=== PATIENT | female | born 1995 | race African-American/Black ===

== ENCOUNTER 2019-10-27 11:47 | Emergency (ER) | payer MEDICAID, OTHER ==
[~2019-10-27] VITALS: Ht 175.3 cm; Wt 78.5 kg
[2019-10-27 11:51] VITALS: BP 135/89
--- NOTE | 2019-10-27 11:58 | NUR ---
Pt ambulated to bed 12.
--- NOTE | 2019-10-27 12:00 | NUR ---
PT AWOKE YESTERDAY WITH SCLERA PINKISH, ITCHING, AND MILD WATERY DRAINAGE, AND YELLOWISH DISCHARGE. DENIES INJURY. SKIN IS PINK/WARM/DRY; AAOX4 WITH EVEN AND STEADY GAIT; LUNGS CLEAR BL; HR EVEN AND REGULAR; PT DENIES ANY FEVER, CP, SOB, OR COUGH, N/V/D AT THIS TIME; PATIENT STATES PAIN OF 4/10 AT THIS TIME; VSS; PATIENT POSITIONED FOR COMFORT; HOB ELEVATED; BEDRAILS UP X1; BED DOWN. ER MD MADE AWARE OF PT STATUS.
--- NOTE | 2019-10-27 12:15 | NUR ---
Dr. Hill is evaluating the patient at bedside.
[2019-10-27] MEDS ORDERED: TETRACAINE HCL/PF 0.5% OPTH 4 ML BTL ONE (12:21)
[2019-10-27] MEDS ORDERED: FLUORESCEIN OPTH STRIP 1 MG ONE (12:21)
[2019-10-27] MEDS ORDERED: FLUORESCEIN OPTH STRIP 1 MG OP ONE (12:25)
[2019-10-27] MEDS ORDERED: TETRACAINE HCL/PF 0.5% OPTH 4 ML BTL OP ONE (12:25)
[2019-10-27 13:59] VITALS: BP 135/89
--- NOTE | 2019-10-27 13:59 | NUR ---
Patient discharged with v/s stable. Written and verbal after care instructions given and explained. Patient alert, oriented and verbalized understanding of instructions. Ambulatory with steady gait. All questions addressed prior to discharge. ID band removed. Patient advised to follow up with PMD. Rx of POLYTRIM given. Patient educated on indication of medication including possible reaction and side effects. Opportunity to ask questions provided and answered.
== END 2019-10-27 13:59 | disposition home or self-care (01) ==
LOC: MED 11:47
DX: H57.11 Ocular pain, right eye (principal)
CPT/HCPCS: 99283

== ENCOUNTER 2021-04-10 03:56 | Emergency (ER) | payer OTHER ==
[~2021-04-10] VITALS: Ht 176.5 cm; Wt 78.2 kg
[2021-04-10 04:11] VITALS: BP 126/78
--- NOTE | 2021-04-10 04:21 | NUR ---
pt taken to bed 03.
[2021-04-10 05:06] LABS: APPEARANCE,URINE CLEAR (CLEAR); BILIRUBIN,URINE NEGATIVE (NEGATIVE); BLOOD, URINE NEGATIVE (NEGATIVE); COLOR,URINE RED (YELLOW); LEUKOCYTE ESTERASE ,URINE TRACE (NEGATIVE); NITRITE, URINE POSITIVE (NEGATIVE); UGLUCOSE 1+ (NEGATIVE)
--- NOTE | 2021-04-10 05:25 | NUR ---
Note scottyone in EDM - 04/10/21 at 0538 by CHIQUITA 26 Y/O F BIB SELF FOR CAGINAL DISHCHARGE FOR X4 DAYS. PT DENIES N/F/V/ PUT PT ADMITS FEELING DIZZY. PT FEELS BURNING SENSATION UPON URINATION. PT STATES BLOOD IN URINE. PT ADMITS TO SMOKING AND ALCOHOL.SKIN IS PINK/WARM/DRY; AAOX4 WITH EVEN AND STEADY GAIT; LUNGS CLEAR BL; HR EVEN AND REGULAR; NO PMH NKA
--- NOTE | 2021-04-10 05:38 | NUR ---
26 Y/O F BIB SELF FOR VAGINAL DISHCHARGE FOR X4 DAYS. PT DENIES N/F/V/ PUT PT ADMITS FEELING DIZZY. PT FEELS BURNING SENSATION UPON URINATION. PT STATES BLOOD IN URINE. PT ADMITS TO SMOKING AND ALCOHOL.SKIN IS PINK/WARM/DRY; AAOX4 WITH EVEN AND STEADY GAIT; LUNGS CLEAR BL; HR EVEN AND REGULAR; NO PMH NKA
[2021-04-10] MEDS ORDERED: DOXY-487 PO (05:56)
[2021-04-10] MEDS ORDERED: cefTRIAXone 500 MG in LIDOCAINE MPF 1% 1 ML IM ONE (06:15)
[2021-04-10] MEDS ORDERED: AZITHROMYCIN 250 MG TAB PO ONE (06:15)
[2021-04-10] MEDS ORDERED: cefTRIAXone 500 MG VIAL ONE (06:27)
[2021-04-10] MEDS ORDERED: LIDOCAINE MPF 1% 5 ML ONE (06:28)
[2021-04-10 06:50] VITALS: BP 130/80
== END 2021-04-10 06:50 | disposition home or self-care (01) ==
LOC: MED 03:56
DX: N72 Inflammatory disease of cervix uteri (principal); N39.0 Urinary tract infection, site not specified; Z79.899 Other long term (current) drug therapy; Z91.040 Latex allergy status
CPT/HCPCS: 81001; 81025; 96372; 99283; J0696; J2001

== ENCOUNTER 2021-08-14 22:48 | Emergency (ER) | payer OTHER ==
[~2021-08-14] VITALS: Ht 175.3 cm; Wt 80.7 kg
[~2021-08-14 22:48] MED LIST: DOXY-487 PO
[2021-08-14 22:59] VITALS: BP 136/77
[2021-08-15] MEDS ORDERED: DOXYCYCLINE 100 MG CAP PO STA (01:02)
--- NOTE | 2021-08-15 01:02 | NUR ---
PT TAKEN TO BED 12.
[2021-08-15] MEDS ORDERED: cefTRIAXone 500 MG in LIDOCAINE MPF 1% 1 ML IM ONE (01:05)
[2021-08-15] MEDS ORDERED: metroNIDAZOLE 250 MG TAB PO ONE (01:05)
[2021-08-15] MEDS ORDERED: DOXY-690 PO (01:07)
[2021-08-15] MEDS ORDERED: METR-435 PO (01:07)
--- NOTE | 2021-08-15 01:07 | NUR ---
26 YO F BIB SELF WITH C/C OF NEEDING TX FOR GONORRHEA. PT STATES HER PARTNER TESTED POSITIVE AND WAS INSTRUCTED TO SEEK TX. PT REPORTS VAGINAL DISCHARGE, ITCHING AND BURNING URINATION. DENIES HX ALLERGY:LATEX
[2021-08-15] MEDS ORDERED: cefTRIAXone 500 MG VIAL ONE (01:18)
[2021-08-15 01:58] VITALS: BP 136/77
--- NOTE | 2021-08-15 01:58 | NUR ---
Patient discharged with v/s stable. Written and verbal after care instructions given and explained. Patient alert, oriented and verbalized understanding of instructions. Ambulatory with steady gait. All questions addressed prior to discharge. ID band removed. Patient advised to follow up with PMD. Rx of VIBRAMYCIN AND METRONIDAZOLE given. Patient educated on indication of medication including possible reaction and side effects. Opportunity to ask questions provided and answered.
== END 2021-08-15 01:58 | disposition home or self-care (01) ==
LOC: MED 22:48
DX: A64 Unspecified sexually transmitted disease (principal); A59.01 Trichomonal vulvovaginitis; A74.9 Chlamydial infection, unspecified; A54.9 Gonococcal infection, unspecified; Z79.2 Long term (current) use of antibiotics; Z91.040 Latex allergy status
CPT/HCPCS: 81002; 81025; 87491; 96372; 99283; J0696

== ENCOUNTER 2021-08-23 14:21 | Emergency (ER) | payer OTHER ==
[~2021-08-23] VITALS: Ht 175.3 cm; Wt 80.7 kg
[~2021-08-23 14:21] MED LIST changes: +DOXY-690 PO; +METR-435 PO
[2021-08-23 14:50] VITALS: BP 118/80
[2021-08-23] MEDS ORDERED: cefTRIAXone 500 MG in LIDOCAINE MPF 1% 1 ML IM ONE (14:55)
[2021-08-23] MEDS ORDERED: LIDOCAINE MPF 1% 5 ML ONE (15:00)
[2021-08-23] MEDS ORDERED: cefTRIAXone 500 MG VIAL ONE (15:00)
[2021-08-23] MEDS ORDERED: DOXY-690 PO (15:01)
[2021-08-23 15:18] VITALS: BP 118/80
--- NOTE | 2021-08-23 15:20 | NUR ---
Patient discharged with v/s stable. Written and verbal after care instructions given and explained. Patient alert, oriented and verbalized understanding of instructions. Ambulatory with steady gait. All questions addressed prior to discharge. ID band removed. Patient advised to follow up with PMD. Rx of VIBRAMYCIN given. Patient educated on indication of medication including possible reaction and side effects. Opportunity to ask questions provided and answered.
== END 2021-08-23 15:20 | disposition home or self-care (01) ==
LOC: MED 14:21
DX: Z11.3 Encounter for screening for infections with a predominantly sexual mode of transmission (principal); R30.0 Dysuria; Z79.2 Long term (current) use of antibiotics; Z91.040 Latex allergy status
CPT/HCPCS: 81002; 81025; 87491; 96372; 99283; J0696; J2001

== ENCOUNTER 2021-09-30 08:19 | Emergency (ER) | payer OTHER ==
[~2021-09-30] VITALS: Ht 175.3 cm; Wt 79.9 kg
[2021-09-30 08:39] VITALS: BP 103/71
[2021-09-30] MEDS ORDERED: ACETAMINOPHEN EXTRA STRENGTH 500 MG TAB ONE (08:45)
[2021-09-30] MEDS ORDERED: ACETAMINOPHEN EXTRA STRENGTH 500 MG TAB PO ONE (08:45)
--- NOTE | 2021-09-30 08:47 | NUR ---
PT AMB TO BED 1. HANDED ON URINE CUP.
--- NOTE | 2021-09-30 09:11 | NUR ---
26 Y.O. F C/O FEVER, URINARY BURNING, TRAORE, COUGH , LOWR BACK, LOWER ABDOMINAL PAIN X 6 DAYS. 9/10 PAIN FOR THE LAST 6 DAYS. PT WAS TAKING MOTRIN AND TYLENOL AT HOME FOR PAIN AND FEVER. DENEIS N/V/D , CHEST PAIN AND SOB. A&OX4, SKIN INTACT, VITALS WNL, AND STEADY GAIT TO BEDSIDE. NKA PMH: DENIES
[2021-09-30] MEDS ORDERED: KETOROLAC 30 MG/ML VIAL IVP ONE (09:15)
[2021-09-30] MEDS ORDERED: NACL 0.9% 2,000 ML IV ONE (09:15)
[2021-09-30] MEDS ORDERED: cefTRIAXone 1,000 MG VIAL ONE (09:20)
[2021-09-30 09:39] LABS: HEMATOCRIT 40.7 % (36-48); HEMOGLOBIN 13.6 g/dL (12.0-16.0); MEAN CORPUSCULAR HEMOGLOBIN 30 pg (27-31); MEAN CORPUSCULAR HGB CONC 33 g/dL (33-37); MEAN CORPUSCULAR VOLUME 90.6 fL (80-94); PLATELET COUNT (AUTO) 170 K/uL (140-450); RED CELL DISTRIBUTION WIDTH 13.7 % (11.6-13.7); WHITE BLOOD COUNT (AUTO) 13.8 K/uL (4.8-10.8)
[2021-09-30 10:02] LABS: ANION GAP 13.4 (8-16); CARBON DIOXIDE 24.6 mmol/L (21-32); CREATININE 1.4 mg/dL (0.6-1.3); TOTAL BILIRUBIN 0.7 mg/dL (0.0-1.0)
[2021-09-30 10:14] LABS: APPEARANCE,URINE CLEAR (CLEAR); BILIRUBIN,URINE NEGATIVE (NEGATIVE); BLOOD, URINE 3+ (NEGATIVE); COLOR,URINE YELLOW (YELLOW); LEUKOCYTE ESTERASE ,URINE 2+ (NEGATIVE); NITRITE, URINE POSITIVE (NEGATIVE); PH,URINE 6.5 (5.0-9.0); UGLUCOSE NEGATIVE (NEGATIVE)
[2021-09-30 10:27] LABS: BARBITURATE, URINE NEGATIVE ng/ml (NEG <=200); BENZODIAZEPINE, URINE NEGATIVE ng/mL (NEG <=200); CANNABINOID, URINE POSITIVE ng/mL (NEG <=50); COCAINE, URINE NEGATIVE ng/mL (NEG <=300); OPIATE, URINE NEGATIVE ng/mL (NEG <=2000); PHENCYCLIDINE SCREEN,URINE NEGATIVE ng/mL (NEG <=25)
[2021-09-30 11:09] LABS: RBC,URINE 50-80 /HPF (0-5); WBC,URINE 16-25 (MOD) /HPF (0-5)
[2021-09-30 11:20] LABS: EOSINOPHILS % (MANUAL) 1 % (0-4); LYMPHOCYTES % (MANUAL) 5 % (20-46)
[2021-09-30 11:33] LABS: MONOCYTES % (MANUAL) 8 % (5-12)
[2021-09-30] MEDS ORDERED: ACET-10509 PO (11:55)
[2021-09-30] MEDS ORDERED: NAPR-54 PO (11:55)
[2021-09-30] MEDS ORDERED: CEPH-588 PO (11:55)
[2021-09-30 13:01] VITALS: BP 120/73
--- NOTE | 2021-09-30 13:02 | NUR ---
Patient discharged with v/s stable. Written and verbal after care instructions given and explained. Patient alert, oriented and verbalized understanding of instructions. Ambulatory with steady gait. All questions addressed prior to discharge. ID band removed. Patient advised to follow up with PMD. Rx of KEFLEX, NAPROXEN AND TYLENOL EXTRA STRENGTH given. Patient educated on indication of medication including possible reaction and side effects. Opportunity to ask questions provided and answered.
== END 2021-09-30 13:02 | disposition home or self-care (01) ==
LOC: MED 08:19
DX: N10 Acute pyelonephritis (principal); F19.10 Other psychoactive substance abuse, uncomplicated; Z91.040 Latex allergy status; Z79.899 Other long term (current) drug therapy
CPT/HCPCS: 36415; 71045; 80053; 80305; 81001; 81025; 83605; 83690; 85025; 87040; 87086; 96365; 96375; 99285; J0696; J1885; J7030; Q0092; 96361

== ENCOUNTER 2022-07-29 12:00 | Emergency (ER) | payer MEDICAID, OTHER ==
[~2022-07-29] VITALS: Ht 175.3 cm; Wt 88.5 kg
[~2022-07-29 12:00] MED LIST changes: +ACET-10509 PO; +CEPH-588 PO; +NAPR-54 PO
[2022-07-29 12:07] VITALS: BP 126/88
[2022-07-29 13:03] LABS: APPEARANCE,URINE SL CLOUDY (CLEAR); BILIRUBIN,URINE NEGATIVE (NEGATIVE); BLOOD, URINE 3+ (NEGATIVE); COLOR,URINE RED (YELLOW); LEUKOCYTE ESTERASE ,URINE 2+ (NEGATIVE); NITRITE, URINE POSITIVE (NEGATIVE); UGLUCOSE NEGATIVE (NEGATIVE)
[2022-07-29 13:45] LABS: RBC,URINE 11-20 (MOD) /HPF (0-5)
[2022-07-29] MEDS ORDERED: cefTRIAXone 500 MG in LIDOCAINE MPF 1% 1 ML IM ONE (13:50)
[2022-07-29] MEDS ORDERED: cefTRIAXone 500 MG VIAL ONE (13:57)
[2022-07-29] MEDS ORDERED: LIDOCAINE MPF 1% 5 ML ONE (13:57)
[2022-07-29] MEDS ORDERED: METR-435 PO (14:28)
[2022-07-29] MEDS ORDERED: DOXY-690 PO (14:28)
[2022-07-29 14:37] VITALS: BP 135/80
--- NOTE | 2022-07-29 14:37 | NUR ---
Patient discharged with v/s stable. Written and verbal after care instructions given. Patient alert, oriented and verbalized understanding of instructions. Ambulatory with steady gait. All questions addressed prior to discharge. ID band removed. Patient advised to follow up with PMD. Rx of Vibramycin and Metronidazole given. Opportunity to ask questions provided and answered.
--- NOTE | 2022-07-29 15:03 | NUR ---
The patient's care was reviewed and supervised by [facility], RN.
== END 2022-07-29 14:37 | disposition home or self-care (01) ==
LOC: MED 12:00
DX: N76.0 Acute vaginitis (principal); B96.89 Other specified bacterial agents as the cause of diseases classified elsewhere; Z20.2 Contact with and (suspected) exposure to infections with a predominantly sexual mode of transmission; Z79.899 Other long term (current) drug therapy; Z91.040 Latex allergy status
CPT/HCPCS: 81001; 81025; 87086; 87210; 87491; 96372; 99283; J0696; J2001

== ENCOUNTER 2022-09-22 12:38 | Emergency (ER) | payer MEDICAID ==
[~2022-09-22] VITALS: Ht 175.3 cm; Wt 58.5 kg
--- NOTE | 2022-09-22 12:58 | NUR ---
PT GIVEN URINE SPECIMEN CUP, RETURNED TO LOBBY AT THIS TIME
[2022-09-22 12:59] VITALS: BP 123/69; PULSE 106; RESP 20; TEMP 97.6; O2SAT 98
[2022-09-22] MEDS ORDERED: cefTRIAXone 1,000 MG in LIDOCAINE MPF 1% 2.1 ML IM ONE (13:35)
[2022-09-22] MEDS ORDERED: PHENAZOPYRIDINE 100 MG TAB PO ONE (13:35)
[2022-09-22] MEDS ORDERED: KETOROLAC 30 MG/ML VIAL IM ONE (13:35)
[2022-09-22 13:51] LABS: BILIRUBIN,URINE NEGATIVE (NEGATIVE); BLOOD, URINE 2+ (NEGATIVE); COLOR,URINE YELLOW (YELLOW); LEUKOCYTE ESTERASE ,URINE 3+ (NEGATIVE); NITRITE, URINE NEGATIVE (NEGATIVE); UGLUCOSE NEGATIVE (NEGATIVE)
[2022-09-22 13:52] LABS: APPEARANCE,URINE CLOUDY (CLEAR)
[2022-09-22] MEDS ORDERED: cefTRIAXone 1,000 MG VIAL ONE (13:57)
[2022-09-22] MEDS ORDERED: LIDOCAINE MPF 1% 5 ML ONE (13:57)
[2022-09-22 14:01] LABS: RBC,URINE 11-20 (MOD) /HPF (0-5)
[2022-09-22] MEDS ORDERED: CEPH-588 PO (14:56)
[2022-09-22 15:25] VITALS: BP 123/69; PULSE 106; RESP 20; TEMP 97.6; O2SAT 98
--- NOTE | 2022-09-22 15:25 | NUR ---
Patient discharged with v/s stable. Written and verbal after care instructions given and explained. Patient alert, oriented and verbalized understanding of instructions. Ambulatory with steady gait. All questions addressed prior to discharge. ID band removed. Patient advised to follow up with PMD. Rx of KEFLEX (SENT) given. Patient educated on indication of medication including possible reaction and side effects. Opportunity to ask questions provided and answered.
== END 2022-09-22 15:25 | disposition home or self-care (01) ==
LOC: MED 12:38
DX: N12 Tubulo-interstitial nephritis, not specified as acute or chronic (principal); Z79.899 Other long term (current) drug therapy; Z79.2 Long term (current) use of antibiotics; Z79.1 Long term (current) use of non-steroidal anti-inflammatories (NSAID); Z91.040 Latex allergy status
CPT/HCPCS: 81001; 81025; 87086; 87491; 96372; 99284; J0696; J1885; J2001

== ENCOUNTER 2023-01-30 20:54 | Emergency (ER) | payer BC, MEDICAID ==
[~2023-01-30] VITALS: Ht 175.3 cm; Wt 81.6 kg
[2023-01-30 21:27] VITALS: BP 129/80; PULSE 105; RESP 20; TEMP 98; O2SAT 98
[2023-01-30 22:31] LABS: APPEARANCE,URINE CLEAR (CLEAR); BILIRUBIN,URINE NEGATIVE (NEGATIVE); BLOOD, URINE NEGATIVE (NEGATIVE); COLOR,URINE YELLOW (YELLOW); LEUKOCYTE ESTERASE ,URINE TRACE (NEGATIVE); NITRITE, URINE NEGATIVE (NEGATIVE); PROTEIN,URINE NEGATIVE (NEGATIVE); UGLUCOSE NEGATIVE (NEGATIVE); UROBILINOGEN,URINE 0.2 EU/dL (0.2 - 1)
[2023-01-30 22:39] LABS: BACTERIA,URINE >30 (MANY) /HPF (None Seen); MUCUS,URINE 1+ /LPF (None Seen); RBC,URINE 0-5 /HPF (0-5); SQUAMOUS EPITHELIAL CELL,UR 4-10 (MOD) /LPF (0-3 (FEW))
[2023-01-30 22:48] VITALS: BP 129/80; PULSE 105; RESP 20; TEMP 98; O2SAT 98
[2023-01-30] MEDS ORDERED: cefTRIAXone 500 MG in LIDOCAINE MPF 1% 1 ML IM ONE (23:10)
[2023-01-30] MEDS ORDERED: cefTRIAXone 500 MG VIAL ONE (23:24)
[2023-01-30] MEDS ORDERED: LIDOCAINE MPF 1% 5 ML ONE (23:25)
[2023-01-31] MEDS ORDERED: DOXY-487 PO (00:01)
[2023-01-31] MEDS ORDERED: METR-435 PO (00:01)
== END 2023-01-31 00:21 | disposition home or self-care (01) ==
LOC: MED 20:54
DX: N76.0 Acute vaginitis (principal); B96.89 Other specified bacterial agents as the cause of diseases classified elsewhere; F17.200 Nicotine dependence, unspecified, uncomplicated; F12.90 Cannabis use, unspecified, uncomplicated; Z79.899 Other long term (current) drug therapy; Z79.2 Long term (current) use of antibiotics; Z79.1 Long term (current) use of non-steroidal anti-inflammatories (NSAID); Z91.040 Latex allergy status
CPT/HCPCS: 81001; 81025; 87086; 87210; 87491; 96372; 99283; J0696; J2001

== ENCOUNTER 2023-07-15 01:20 | Emergency (ER) | payer BC ==
[~2023-07-15] VITALS: Ht 177.8 cm; Wt 83.9 kg
[~2023-07-15 01:20] MED LIST changes: +NAPR-337 PO; -NAPR-54 PO
[2023-07-15 01:33] VITALS: BP 133/86; PULSE 102; RESP 16; TEMP 98.4; O2SAT 98
[2023-07-15 02:13] LABS: APPEARANCE,URINE CLEAR (CLEAR); BILIRUBIN,URINE NEGATIVE (NEGATIVE); BLOOD, URINE 1+ (NEGATIVE); COLOR,URINE YELLOW (YELLOW); LEUKOCYTE ESTERASE ,URINE NEGATIVE (NEGATIVE); NITRITE, URINE NEGATIVE (NEGATIVE); PH,URINE 6.5 (5.0-9.0); PROTEIN,URINE NEGATIVE (NEGATIVE); UGLUCOSE NEGATIVE (NEGATIVE); UROBILINOGEN,URINE 0.2 EU/dL (0.2 - 1)
[2023-07-15] MEDS ORDERED: cefTRIAXone 500 MG VIAL ONE (02:24)
[2023-07-15] MEDS ORDERED: LIDOCAINE MPF 1% 5 ML ONE (02:25)
[2023-07-15] MEDS ORDERED: DOXY-690 PO (02:26)
[2023-07-15] MEDS ORDERED: METR-435 PO (02:26)
[2023-07-15] MEDS: cefTRIAXone 500 MG in LIDOCAINE MPF 1% 1 ML IM ONE (02:32)
== END 2023-07-15 02:40 | disposition home or self-care (01) ==
LOC: MED 01:20
DX: N76.0 Acute vaginitis (principal); B96.89 Other specified bacterial agents as the cause of diseases classified elsewhere; Z79.899 Other long term (current) drug therapy
CPT/HCPCS: 81003; 81025; 87210; 87491; 96372; 99283; J0696; J2001

== ENCOUNTER 2023-08-20 21:57 | Emergency (ER) | payer BC ==
[~2023-08-20] VITALS: Ht 177.8 cm; Wt 83.9 kg
[2023-08-20 22:10] VITALS: BP 135/75; PULSE 86; RESP 18; TEMP 97.6; O2SAT 98
[2023-08-20] MEDS: ACETAMINOPHEN EXTRA STRENGTH 500 MG TAB PO ONE (22:38)
[2023-08-20] MEDS: KETOROLAC 30 MG/ML VIAL IM ONE (22:38)
[2023-08-20] MEDS: LIDOCAINE 5% 1 EA PATCH TP ONE (22:39)
[2023-08-20 22:40] VITALS: BP 135/75; PULSE 98; RESP 20; O2SAT 98
[2023-08-21] MEDS ORDERED: CYCL-711 PO (00:26)
[2023-08-21] MEDS ORDERED: IBUP-2218 PO (00:26)
[2023-08-21] MEDS ORDERED: ACET-10509 PO (00:26)
== END 2023-08-21 01:31 | disposition home or self-care (01) ==
LOC: MED 21:57
DX: S39.012A Strain of muscle, fascia and tendon of lower back, initial encounter (principal); I10 Essential (primary) hypertension; Z79.899 Other long term (current) drug therapy; Z91.040 Latex allergy status; X58.XXXA Exposure to other specified factors, initial encounter; Y92.89 Other specified places as the place of occurrence of the external cause; Y93.89 Activity, other specified; Y99.8 Other external cause status
CPT/HCPCS: 72100; 72220; 96372; 99284; J1885

== ENCOUNTER 2023-10-29 04:08 | Emergency (ER) | payer BC ==
[~2023-10-29] VITALS: Ht 175.3 cm; Wt 79.4 kg
[~2023-10-29 04:08] MED LIST changes: -ACET-10509 PO; +ACET500T99 PO; +CYCL-711 PO; +IBUP-2218 PO
[2023-10-29 04:12] VITALS: BP 127/87; PULSE 92; RESP 18; TEMP 98.5; O2SAT 100
[2023-10-29] MEDS ORDERED: IBUP-2213 PO (04:49)
[2023-10-29] MEDS ORDERED: AMOX1TAB8 PO (04:49)
[2023-10-29] MEDS: IBUPROFEN 600 MG TAB PO ONE (05:00)
--- NOTE | 2023-10-29 05:00 | NUR ---
28F BIB AMBULATION C/O PAIN IN LEG DUE TO ANIMAL BITE DENIES PAST MEDICAL HISTORY ALLERGIES LATEX
[2023-10-29 05:04] VITALS: BP 127/87; PULSE 92; RESP 18; TEMP 98.5; O2SAT 100
--- NOTE | 2023-10-29 05:16 | NUR ---
Patient discharged with v/s stable. Written and verbal after care instructions given and explained. Patient alert, oriented and verbalized understanding of instructions. Ambulatory with steady gait. All questions addressed prior to discharge. ID band removed. Patient advised to follow up with PMD. Rx of Amoxicillin/Potassium Clav, Ibuprofen given. Patient educated on indication of medication including possible reaction and side effects. Opportunity to ask questions provided and answered.
== END 2023-10-29 05:04 | disposition home or self-care (01) ==
LOC: MED 04:08
DX: S81.852A Open bite, left lower leg, initial encounter (principal); I10 Essential (primary) hypertension; Z79.899 Other long term (current) drug therapy; Z91.040 Latex allergy status; W54.0XXA Bitten by dog, initial encounter; Y93.89 Activity, other specified; Y92.89 Other specified places as the place of occurrence of the external cause; Y99.8 Other external cause status
CPT/HCPCS: 99283

== ENCOUNTER 2023-12-12 19:02 | Emergency (ER) | payer BC ==
[~2023-12-12] VITALS: Ht 177.8 cm; Wt 56.7 kg
[~2023-12-12 19:02] MED LIST changes: +AMOX1TAB8 PO; +IBUP-2213 PO
[2023-12-12 20:06] VITALS: BP 146/96; PULSE 64; RESP 18; TEMP 97.7; O2SAT 100
[2023-12-12] MEDS ORDERED: cefTRIAXone 500 MG VIAL ONE (21:06)
[2023-12-12] MEDS ORDERED: LIDOCAINE MPF 1% 5 ML ONE (21:07)
[2023-12-12] MEDS: cefTRIAXone 500 MG in LIDOCAINE MPF 1% 1 ML IM ONE (21:18)
[2023-12-12 21:21] LABS: APPEARANCE,URINE CLEAR (CLEAR); BILIRUBIN,URINE NEGATIVE (NEGATIVE); BLOOD, URINE NEGATIVE (NEGATIVE); COLOR,URINE YELLOW (YELLOW); LEUKOCYTE ESTERASE ,URINE NEGATIVE (NEGATIVE); NITRITE, URINE NEGATIVE (NEGATIVE); PH,URINE 6.5 (5.0-9.0); PROTEIN,URINE NEGATIVE (NEGATIVE); UGLUCOSE NEGATIVE (NEGATIVE); UROBILINOGEN,URINE 0.2 EU/dL (0.2 - 1)
[2023-12-12] MEDS ORDERED: DOXY-22 PO (21:22)
== END 2023-12-12 21:50 | disposition home or self-care (01) ==
LOC: MED 19:02
DX: Z11.3 Encounter for screening for infections with a predominantly sexual mode of transmission (principal); R30.0 Dysuria; R03.0 Elevated blood-pressure reading, without diagnosis of hypertension; I10 Essential (primary) hypertension; Z79.899 Other long term (current) drug therapy; Z91.040 Latex allergy status
CPT/HCPCS: 81003; 81025; 87491; 96372; 99283; J0696; J2003